=== PATIENT | male | born 1975 | race Caucasian/White ===

== ENCOUNTER 2019-05-05 13:56 | Emergency (ER) | payer SELFPAY ==
[2019-05-05 16:48] LABS: ADD UMIC YES; UR AMORPHOUS CRYSTAL MANY /HPF (NONE SEEN); UR ASCORBIC ACID NEGATIVE (NEGATIVE); UR BACTERIA FEW /HPF (NONE SEEN); UR BILIRUBIN (Dip) NEGATIVE (NEGATIVE); UR BLOOD (Dip) 1+ mg/dL (NEGATIVE); UR CLARITY CLOUDY (CLEAR); UR COLOR YELLOW (YELLOW); UR GLUCOSE (Dip) NEGATIVE (NEGATIVE); UR KETONES (Dip) NEGATIVE (NEGATIVE); UR LEUKOCYTE ESTERASE (Dip) NEGATIVE Leu/ul (NEGATIVE); UR NITRITE (Dip) NEGATIVE (NEGATIVE); UR RBC 3 /HPF (0-5); UR SPECIFIC GRAVITY (Dip) 1.019 (1.003-1.030); UR TOTAL PROTEIN (Dip) NEGATIVE (NEGATIVE); UR UROBILINOGEN (Dip) NEGATIVE (NEGATIVE); UR WBC 7 /HPF (0-5)
[2019-05-05] MEDS: AZITHROMYCIN 500 MG TAB PO (18:32)
[2019-05-05] MEDS: CEFTRIAXONE 250 MG INJ IM (18:32)
[2019-05-05] MEDS: LIDOCAINE 1% (MPF) 5 ML VIAL INJ (18:33)
== END 2019-05-05 18:48 | disposition home or self-care (01) ==
LOC: FTE 13:56
DX: N43.3 Hydrocele, unspecified (principal)
CPT/HCPCS: 76870; 81001; 87591; 96372; 99285-25